=== PATIENT | female | born 1985 | race Caucasian/White ===

== ENCOUNTER 2020-05-27 22:28 | Emergency (ER) | payer OTHER, SELFPAY | END 2020-05-27 23:20 | disposition home or self-care (01) | LOC: CSHERS 22:28 | DX: S69.92XA Unspecified injury of left wrist, hand and finger(s), initial encounter (principal); F17.210 Nicotine dependence, cigarettes, uncomplicated; W23.0XXA Caught, crushed, jammed, or pinched between moving objects, initial encounter | CPT/HCPCS: 99283 ==

== ENCOUNTER 2021-01-29 18:35 | Emergency (ER) | payer SELFPAY ==
[2021-01-29] MEDS ORDERED: Acetaminophen 500 MG TAB ONE (20:38)
[2021-01-29] MEDS ORDERED: Ibuprofen 200 MG TAB ONE (20:49)
[2021-01-29 21:37] LABS: SARS-CoV-2 NAA Rapid Test DETECTED (NotDetected)
== END 2021-01-29 21:04 | disposition home or self-care (01) ==
LOC: CSHERS 18:35
DX: U07.1 COVID-19 (principal); F17.210 Nicotine dependence, cigarettes, uncomplicated
CPT/HCPCS: 0240U

== ENCOUNTER 2021-05-17 12:14 | Emergency (ER) | payer SELFPAY | END 2021-05-17 14:30 | disposition home or self-care (01) | LOC: CSHERS 12:14 | DX: J02.9 Acute pharyngitis, unspecified (principal); F17.210 Nicotine dependence, cigarettes, uncomplicated | CPT/HCPCS: 99283 ==

== ENCOUNTER 2021-10-18 20:47 | Emergency (ER) | payer OTHER, SELFPAY | END 2021-10-18 23:03 | disposition home or self-care (01) | LOC: CSHERS 20:47 | DX: S20.212A Contusion of left front wall of thorax, initial encounter (principal); F17.210 Nicotine dependence, cigarettes, uncomplicated; V49.9XXA Car occupant (driver) (passenger) injured in unspecified traffic accident, initial encounter | CPT/HCPCS: 71045 ==

== ENCOUNTER 2022-03-18 17:19 | Emergency (ER) | payer BC, SELFPAY ==
[2022-03-18] MEDS ORDERED: Ketorolac Tromethamine 30 MG/ML VIAL ONE (19:19)
== END 2022-03-18 19:22 | disposition home or self-care (01) ==
LOC: CSHERS 17:19
DX: M25.511 Pain in right shoulder (principal); F17.210 Nicotine dependence, cigarettes, uncomplicated; F17.290 Nicotine dependence, other tobacco product, uncomplicated
CPT/HCPCS: 96372; J1885

== ENCOUNTER 2022-06-04 09:53 | Emergency (ER) | payer BC, SELFPAY ==
[2022-06-04] MEDS ORDERED: Ondansetron ODT 4 MG TAB ONE (11:40)
[2022-06-04] MEDS ORDERED: Dexamethasone 10 MG/ML VIAL ONE (11:40)
[2022-06-04] MEDS ORDERED: Ibuprofen 200 MG TAB ONE (11:41)
== END 2022-06-04 11:45 | disposition home or self-care (01) ==
LOC: CSHERS 09:53
DX: J02.9 Acute pharyngitis, unspecified (principal); F17.210 Nicotine dependence, cigarettes, uncomplicated
CPT/HCPCS: 87081; 87430; 99284; J1100; Q0162

== ENCOUNTER 2022-07-30 14:14 | Emergency (ER) | payer BC ==
[2022-07-30] MEDS ORDERED: Benzonatate 100 MG CAP ONE (15:02)
[2022-07-30 15:51] LABS: SARS-CoV-2 NAA Rapid Test Not Detected (NotDetected)
== END 2022-07-30 15:32 | disposition home or self-care (01) ==
LOC: CSHERS 14:14
DX: J18.9 Pneumonia, unspecified organism (principal); F17.290 Nicotine dependence, other tobacco product, uncomplicated; Z20.822 Contact with and (suspected) exposure to COVID-19
CPT/HCPCS: 71045; 93005; J7611